=== PATIENT | male | born 1955 | race Caucasian/White ===

== ENCOUNTER 2025-10-16 13:10 | Emergency (ER) | payer MEDICAID ==
[~2025-10-16] VITALS: Ht 160 cm; Wt 64.0 kg
[2025-10-16 13:12] VITALS: O2SAT 98
[2025-10-16] MEDS: FOLIC ACID 1 MG, THIAMINE HCL 100 MG, MVI, ADULT NO.1 10 ML in DEXTROSE 5% WATER 1,000 ML IV ONE (14:36)
[2025-10-16] MEDS: FAMOTIDINE 20MG/2ML VIAL IV ONE (14:41)
[2025-10-16] MEDS: DIAZEPAM 5 MG/ML 2ML SYR IV ONE (14:42)
[2025-10-16 15:15] LABS: CREATININE 0.7 mg/dL (0.6-1.3); ETHANOL BLOOD 17 mg/dL (<10); UREA NITROGEN BLOOD 10 mg/dL (9-23)
[2025-10-16 15:16] LABS: PROTEIN TOTAL 6.3 g/dL (6.0-8.3)
[2025-10-16 15:17] LABS: ASPARTATE AMINOTRANSFERASE 35 IU/L (<34); BILIRUBIN DIRECT 0.2 mg/dL (<=3.0); BILIRUBIN TOTAL 0.6 mg/dL (0.1-1.0)
[2025-10-16 15:28] LABS: BASOPHILS % 1.1 % (0.0-2.0); EOSINOPHILS % 0.7 % (0.0-5.0); HEMATOCRIT. 39.2 % (42.0-52.0); HEMOGLOBIN. 13.1 g/dL (14.0-18.0); LYMPHOCYTES % 22.1 % (20.0-50.0); MEAN PLATELET VOLUME 8.4 fl (7.4-10.4); MONOCYTES % 6.9 % (2.0-8.0); NEUTROPHILS % 69.2 % (40.0-76.0); PLATELET 236 x1000/uL (130-400); RED BLOOD CELL COUNT 3.92 mill/uL (4.7-6.1); RED CELL DISTRIBUTION WIDTH 14.2 % (11.6-14.6)
[2025-10-16] MEDS ORDERED: MAGNESIUM 2 G PREMIX 50 ML IV ONE (15:30)
[2025-10-16 15:34] LABS: INR 1.0
[2025-10-16 17:30] VITALS: BP 152/92; PULSE 72; RESP 18; TEMP 36.8; O2SAT 98
== END 2025-10-16 18:06 | disposition left against medical advice (07) ==
LOC: ER 13:10 → CMPBEDREQ 10-17 08:56
DX: F10.239 Alcohol dependence with withdrawal, unspecified (principal); E83.42 Hypomagnesemia; I10 Essential (primary) hypertension; Y90.0 Blood alcohol level of less than 20 mg/100 ml
CPT/HCPCS: 80076; 80048; 80320; 83690; 83735; 85025; 85610; 36415; 93005; 96365; 96375; 99291; J3360; J1308; J3490 ×2; J3411; J7070; G0480